=== PATIENT | female | born 1990 | race Caucasian/White ===

== ENCOUNTER 2023-04-21 10:00 | Emergency (ER) | payer MEDICAID, SELFPAY ==
[2023-04-21 10:12] VITALS: BP 146/82; BP 167/85; PULSE 104; PULSE 92; RESP 19; TEMP 36.3; O2SAT 100; O2SAT 99; BMI 47.1
[2023-04-21 10:18] VITALS: BP 146/86; PULSE 91; RESP 18; TEMP 36.3; O2SAT 99
--- NOTE | 2023-04-21 10:20 | ED.GENADULT ---
HPI - General Adult General Chief complaint: General Medical Stated complaint: WAS UNCONS W/LOW BS 39, 107 NOW Time Seen by Provider: 04/21/23 10:20 Source: patient and family () Mode of arrival: EMS Limitations: no limitations History of Present Illness HPI narrative: 33-year-old female with a history diabetes mellitus who presents emergency department for evaluation of altered mental status secondary to low blood sugar. The patient moved from [place] to [place] and her insulin pump and insulin monitoring device was not yet approved by [facility]. The patient did see an milieu coordinator and was started on Lantus 17 units b.i.d. with sliding scale Humalog. Patient states that she has had tight control of her sugar with her glucose ranging from 150-170. She states that yesterday she had a morning glucose of 28 but was asymptomatic. This morning, the patient was not waking up in her 8-year-old son told her father that he thought the mother's was low. The was able to wake up patient but she was very agitated and was not able to drink orange juice with sugar secondary to agitation. The called 911 and paramedics give the patient glucagon and the patient's mental status returned to normal. Patient states that she has been eating and drinking well and has not been ill in any way over the past several days. Related Data Allergies Allergy/AdvReac Type Severity Reaction Status Date / Time morphine Allergy Hives Verified 04/21/23 10:11 [email or web address] Allergy Swelling Verified 04/21/23 10:11 Review of Systems Review of Systems: Yes all other systems are reviewed and are negative [facility] Past Medical History Attestation statement: The following information was validated with the patient. [facility] Narrative: Social history: Patient is and is here with her . She denies tobacco, alcohol and drug use. Social History Social History Smoked in Last 30 Days: Yes Use of substances other than those prescribed or required for medical reasons: No Advance Directives: No Advance Directives Information Provided: No Physical Exam ED Vital Signs: Vital Signs - 24 hr 04/21/23 10:12 04/21/23 10:18 Temperature 97.4 F 97.4 F Pulse Rate 92 91 Respiratory Rate 19 18 Blood Pressure 146/82 H 146/86 H Pulse Oximetry 99 99 Oxygen Delivery Method Room Air Room Air BMI result Body Mass Index 47.1 Patient's vital signs were normal Exam: General: Awake, alert in no distress Head: Normocephalic, atraumatic EENT: PERRL, Lids normal, sclera normal, conjunctiva normal, nose normal , ears normal, throat without erythema or exudates Neck: Supple, no adenopathy Lung: breath sounds symmetric, no wheezing, rales or rhonchi Chest: symmetric movement, nontender Heart: regular rate and rhythm, normal S1, S2 no murmurs or rubs Abdomen: soft, non-tender, nondistended, normal bowel sounds Back: no vertebral tenderness, no CVAT Extremities: no deformities, moves all extremities symmetrically Neuro: Awake, alert, oriented, normal speech, moves all extremities symmetrically Psych: Pleasant, cooperative Medical Decision Making Medical Decision Making MDM Narrative: 33-year-old female with history of diabetes mellitus who presents emergency department for evaluation of agitation secondary to low glucose of 39, received glucagon EN route to the hospital with improvement of her mental status, she is now back to baseline. Patient was using an insulin pump and glucose monitor in [place] but [facility] approval has been obtained but she has not been able to get the monitor yet. Patient did see an milieu coordinator and has been taking Lantus 17 units b.i.d. and has not used any Humalog since being on Lantus. Patient has not been ill in any way prior to today's presentation but did have a low blood sugar yesterday morning well and she was asymptomatic Differential diagnosis: Hypoglycemia, renal failure, too much insulin, not enough food Following evaluation was ordered: CBC, CMP Patient was treated with the following: Food 12:52 Interpretation patient's laboratory evaluation is as follows: CBC was normal. BUN and creatinine were normal Patient's low blood sugars most likely caused by being on too much Lantus and I did discuss this with her. Patient was advised to decrease both doses of Lantus to 12 units b.i.d. and to cover high glucose with her Humalog. She then will need to talk to her milieu coordinator to slowly increase her nighttime Lantus based on the amount of Humalog she needs She was advised also to increase the amount of food that she eats over the 24 hours to prevent hypoglycemia. Admission/Observation Consideration of admission/observation: Escalation of care including admission/observation considered Lab Data MDM Lab Attestation statement: I reviewed the patient's lab results. 04/21/23 11:48 04/21/23 11:48 Labs: Lab Results 04/21/23 04/21/23 Range/Units 10:21 11:48 WBC 20.0 H (4.8-10.8) X10*3/uL RBC 4.57 (4.20-5.50) X10*6/uL Hgb 12.5 (12.0-16.0) g/dl Hct 38.0 (37.0-47.0) % MCV 83.2 (80.0-98.0) fL MCH 27.4 (27.0-33.0) pg MCHC 32.9 (31.0-35.0) g/dl RDW 15.5 (11.0-16.0) % Plt Count 291 (160-400) X10*3/uL MPV 9.9 (9.4-12.3) fL Immature Gran % (Auto) 0.4 (0.0-0.4) % Neut % (Auto) 83.6 H (45-73) % Lymph % (Auto) 9.3 L (20-40) % [place] % (Auto) 6.3 (2-11) % Eos % (Auto) 0.2 (0-4) % Baso % (Auto) 0.2 (0-2) % Lymph # (Auto) 1.9 (1.2-4.9) X10*3/uL [place] # (Auto) 1.3 H (0.1-1.2) X10*3/uL Eos # (Auto) 0.0 (0.0-0.4) X10*3/uL Baso # (Auto) 0.0 (0.0-0.2) X10*3/uL Abs Immat Gran (auto) 0.08 H (0.00-0.03) X10*3/uL Absolute Neuts (auto) 16.7 H (2.0-8.3) x10*3/uL Absolute Nucleated RBC 0.000 (0.0-0.012) X10*3/uL Nucleated RBC % (auto) 0.0 (0.0-0.2) /100WBC Sodium 140 (135-145) mmol/L Potassium 4.2 (3.3-5.1) mmol/L Chloride 110 H (96-108) mmol/L Carbon Dioxide 22 (22-29) mmol/L Anion Gap 12 (12-20) BUN 11 (9-16) mg/dL Creatinine 0.84 (0.5-1.4) mg/dL Estim Creat Clear Calc 120.9 Estimated GFR > 60 POC Glucose 109 (60-115) mg/dL Random Glucose 91 (60-115) mg/dL Calcium 8.8 (8.4-10.2) mg/dL Total Bilirubin 0.2 (0.0-1.0) mg/dL AST 19 (5-31) U/L ALT 18 (0-31) U/L Alkaline Phosphatase 130 H (39-117) U/L Total Protein 7.4 (6.5-8.0) g/dL Albumin 3.6 (3.5-5.0) g/dL Independent Historian Clinical information obtained from an independent historian. History obtained from or confirmed by: Spouse Chronic Conditions Patient?s care impacted by: Diabetes Discharge Plan Discharge Clinical Impression: Hypoglycemia, Altered mental status Patient Disposition: Home, Self-Care Additional Instructions: Your blood work was normal, you are not anemic in your kidney function is normal which is reassuring. Your low sugars are most likely caused by being on too much Lantus. Decrease your Lantus to 12 units twice a day. Use your Humalog to treat high glucose based on your sliding scale given to you by your milieu coordinator. You should follow-up with your milieu coordinator within 1 week to discuss how you should increase the Lantus based on the amount of Humalog that your using. The next 24 hours increase the amount of food that you eat and allow your glucose to be as high as 200 in order to prevent recurrent hypoglycemia (low glucose). Follow-up with your doctor in 2 days. Please return to the emergency department if your symptoms get worse or if you develop any symptoms that are concerning to you.
--- NOTE | 2023-04-21 10:24 | PC.NURSE ---
pt presents to ED via EMS. EMS reports pts called for 911 this morning when he found her not responding appropriately. EMS found pts sugar to be 39, EMS administered 1mg of glucagon IM and 10G of D10 IV (IV in the left AC 22G). Sugar improved to 107 for EMS, A&O4. Pt is currently alert and oriented, breathing even and unlabored, skin warm and dry. Pt denies any pain, CP, SOB, N/V/D, recent fevers or cough. Pt reports she has had Low sugar readings for the past couple of days. Pt is insulin dependent diabetes, last took insulin before bedtime yesterday, ate dinner with no issues.
[2023-04-21 10:25] LABS: Glucose, Whole Blood 109 mg/dL (60-115)
--- NOTE | 2023-04-21 10:28 | PC.NURSE ---
pt placed on bedside ekg monitor tech, NSR. BGL reassessed by this RN and is 109.
--- NOTE | 2023-04-21 11:33 | PC.NURSE ---
pt reports she was able to eat and drink (per MDs orders) and feels much better at this time. no new complaints.
[2023-04-21 11:52] LABS: MANUAL DIFF FLAG NO
[2023-04-21 11:54] LABS: Basophils Percent Auto 0.2 % (0-2); Eosinophils Percent Auto 0.2 % (0-4); Hemoglobin 12.5 g/dl (12.0-16.0); Imm Gran Abs Auto 0.08 X10*3/uL (0.00-0.03); Imm Gran Pct Auto 0.4 % (0.0-0.4); Lymphocytes Absolute Auto 1.9 X10*3/uL (1.2-4.9); Lymphocytes Percent Auto 9.3 % (20-40); Mean Corpuscular HGB Conc 32.9 g/dl (31.0-35.0); Mean Corpuscular Hemoglobin 27.4 pg (27.0-33.0); Mean Corpuscular Volume 83.2 fL (80.0-98.0); Mean Platelet Volume 9.9 fL (9.4-12.3); Monocytes Absolute Auto 1.3 X10*3/uL (0.1-1.2); Monocytes Percent Auto 6.3 % (2-11); Neutrophils Absolute Auto 16.7 x10*3/uL (2.0-8.3); Neutrophils Percent Auto 83.6 % (45-73); Platelet Count 291 X10*3/uL (160-400); Red Blood Count 4.57 X10*6/uL (4.20-5.50); Red Cell Distribution Width 15.5 % (11.0-16.0)
[2023-04-21 12:07] LABS: Alanine Aminotransferase 18 U/L (0-31); Albumin Level 3.6 g/dL (3.5-5.0); Alkaline Phosphatase 130 U/L (39-117); Anion Gap 12 (12-20); Aspartate Amino Transferase 19 U/L (5-31); Bilirubin Total 0.2 mg/dL (0.0-1.0); Blood Urea Nitrogen 11 mg/dL (9-16); Calcium 8.8 mg/dL (8.4-10.2); Carbon Dioxide 22 mmol/L (22-29); Chloride 110 mmol/L (96-108); Creatinine Clr Calc Pharmacy 120.9; Estimated Glomerular Filt Rate > 60; Glucose Random 91 mg/dL (60-115); Potassium 4.2 mmol/L (3.3-5.1); Sodium 140 mmol/L (135-145); Total Protein 7.4 g/dL (6.5-8.0)
== END 2023-04-21 13:06 | disposition home or self-care (01) ==
PROVIDERS: Emergency Provider Emergency Medicine Emergency Medical Services
DX: R41.82 Altered mental status, unspecified (principal); E11.649 Type 2 diabetes mellitus with hypoglycemia without coma; Z96.41 Presence of insulin pump (external) (internal); Z79.4 Long term (current) use of insulin; Z79.899 Other long term (current) drug therapy
CPT/HCPCS: 36415; 80053; 82947; 85025; 99283; 99284